=== PATIENT | female | born 1990 | race African-American/Black ===

== ENCOUNTER 2017-10-05 03:50 | Inpatient (IN) | payer OTHER, MEDICAID ==
[~2017-10-05] VITALS: Ht 157.5 cm; Wt 67.6 kg
[2017-10-05] MEDS ORDERED: FAMOTIDINE 20MG TABLET PO STA (04:00)
[2017-10-05] MEDS ORDERED: OCTREOTIDE ACETATE 50 MCG/ML 1ML IV STA (04:00)
[2017-10-05] MEDS ORDERED: SODIUM CHLORIDE 0.9% 1000ML BAG (SEPSIS BOLUS) IV ONE (04:00)
[2017-10-05] MEDS ORDERED: PANTOPRAZOLE SODIUM 40 MG/VIAL IV STA (04:00)
[2017-10-05 04:31] LABS: BASOPHILS % 0.4 % (0.0-2.0); EOSINOPHILS % 0.1 % (0.0-5.0); HEMATOCRIT. 41.1 % (36.0-48.0); HEMOGLOBIN. 13.6 g/dL (12.0-16.0); LYMPHOCYTES % 7.9 % (20.0-50.0); MEAN CORPUSCULAR HEMOGLOBIN 31.3 pg (28.0-32.0); MEAN CORPUSCULAR VOLUME 94.5 fL (81.0-99.0); MEAN PLATELET VOLUME 7.5 fl (7.4-10.4); NEUTROPHILS % 89.6 % (40.0-76.0); PLATELET 300 x1000/uL (130-400); RED BLOOD CELL COUNT 4.35 mill/uL (4.2-5.4); RED CELL DISTRIBUTION WIDTH 12.9 % (11.6-14.6)
[2017-10-05 04:40] LABS: HCG SCREEN NEGATIVE; INR 1.1; PARTIAL THROMBOPLASTIN TIME 29.3 sec (23.4-31.0); PROTHROMBIN TIME 11.1 sec (9.4-11.6)
[2017-10-05 04:48] LABS: CARBON DIOXIDE 23 mEq/L (21-32); CHLORIDE 107 mEq/L (98-107)
[2017-10-05] MEDS ORDERED: SODIUM CHLORIDE 0.45% 1,000 ML IV SCH (08:11)
[2017-10-05] MEDS ORDERED: MORPHINE SULFATE 2 MG/ML CPJ (NOT FOR IM USE) IV PRN (08:15)
[2017-10-05] MEDS ORDERED: ONDANSETRON HCL 4MG/2ML VIAL IV PRN (08:15)
[2017-10-05] MEDS ORDERED: MAGNESIUM/ALUMINUM HYDROXIDE/SIMETHICONE 30ML UDC PO PRN (08:15)
[2017-10-05] MEDS ORDERED: DIPHENHYDRAMINE 50MG/ML VIAL IV PRN (08:15)
[2017-10-05] MEDS ORDERED: CLONIDINE 0.1MG TABLET PO PRN (08:15)
[2017-10-05] MEDS ORDERED: IPRATROPIUM/ALBUTEROL 0.5-3(2.5)MG/3ML NEB INH PRN (08:15)
[2017-10-05] MEDS ORDERED: GUAIFENESIN 200MG/10ML SUGAR FREE UDC PO PRN (08:15)
[2017-10-05] MEDS ORDERED: LORAZEPAM 0.5MG TABLET PO PRN (08:15)
[2017-10-05] MEDS ORDERED: NA PHOS,M-B/NA PHOS,DI-BA ENEMA 118ML PR PRN (08:15)
[2017-10-05] MEDS ORDERED: DOCUSATE SODIUM 100MG CAPSULE PO PRN (08:15)
[2017-10-05] MEDS ORDERED: ACETAMINOPHEN 325MG TABLET PO PRN (08:15)
[2017-10-05] MEDS: HYDROCODONE/ACETAMINOPHEN 5/325MG TABLET PO PRN ×2 (10:09→22:37)
[2017-10-05 10:24] LABS: CHLORIDE 111 mEq/L (98-107)
[2017-10-05 10:30] LABS: CARBON DIOXIDE 23 mEq/L (21-32)
[2017-10-05 21:00] VITALS: BP 101/72
[2017-10-05 21:30] VITALS: BP 101/72
[2017-10-06] VITALS: BP 124/62
[2017-10-06 04:00] VITALS: BP 104/68
[2017-10-06 07:33] LABS: BASOPHILS % 0.4 % (0.0-2.0); HEMOGLOBIN. 11.7 g/dL (12.0-16.0); LYMPHOCYTES % 36.9 % (20.0-50.0); MEAN CORPUSCULAR HEMOGLOBIN 31.4 pg (28.0-32.0); MEAN CORPUSCULAR VOLUME 93.9 fL (81.0-99.0); MEAN PLATELET VOLUME 7.4 fl (7.4-10.4); MONOCYTES % 9.7 % (2.0-8.0); PLATELET 216 x1000/uL (130-400); RED BLOOD CELL COUNT 3.73 mill/uL (4.2-5.4); RED CELL DISTRIBUTION WIDTH 12.9 % (11.6-14.6)
[2017-10-06 07:52] LABS: CARBON DIOXIDE 26 mEq/L (21-32); CHLORIDE 107 mEq/L (98-107); HDL CHOLESTEROL 28 mg/dL (40-59); LDL CHOLESTEROL 79 mg/dL (5-100)
[2017-10-06 08:00] VITALS: BP 120/88
[2017-10-06] MEDS ORDERED: POTASSIUM CHLORIDE 20MEQ TABLET SR PO SCH (08:15)
[2017-10-06 08:41] VITALS: BP 120/88
== END 2017-10-06 09:20 | disposition home or self-care (01) | DRG 378 ==
LOC: ER 03:52 → 8WST 05:05 → EDBEDREQ 05:07 → ENRESERV 19:20
PROVIDERS: ADMIT Internal Medicine; ATTEND Internal Medicine
DX: K62.5 Hemorrhage of anus and rectum (principal); G71.0 Muscular dystrophy; D64.9 Anemia, unspecified; E86.0 Dehydration; I10 Essential (primary) hypertension; N93.9 Abnormal uterine and vaginal bleeding, unspecified; Z98.51 Tubal ligation status; Z88.1 Allergy status to other antibiotic agents; Z79.899 Other long term (current) drug therapy
CPT/HCPCS: 36415; 80048; 80053; 80061; 83605; 83690; 84703; 85025; 85610; 85730; 86850; 86900; 96374; 96375; 99285; C9113; J2354; J7030; A4315